=== PATIENT | female | born 2000 | race Caucasian/White ===

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

== ENCOUNTER → 2023-10-24 | Outpatient (CLI) | payer OTHER, SELFPAY ==
--- NOTE | 2023-10-24 15:42 | RAD_ITS ---
STUDY: X-RAY STERNUM REASON FOR EXAM: Female, 23 years old. CHEST PAIN TECHNIQUE: 4 view(s) of the sternum were obtained. COMPARISON: None. FINDINGS: Normal bilateral sternoclavicular articulations. Normal manubrium. Normal sternomanubrial joint. Normal sternal body and xiphoid process. There is no demonstrated fracture of the sternum. Normal visualized anterior ribs. Normal visualized lungs. The soft tissue structures are unremarkable. RAD/Sternum min 2 Views IMPRESSION: Normal x-ray examination of the sternum. Electronically Signed: Remington Elias MD at 8:42 EDT ,
== END | disposition home or self-care (01) ==
LOC: MTRAD 15:37
PROVIDERS: PCP Family Medicine; Referring Provider Family Medicine; Visit Provider Family Medicine
DX: R07.89 Other chest pain (principal)
CPT/HCPCS: 71120

== ENCOUNTER 2024-01-05 08:00 | Outpatient (RCR) | payer OTHER, SELFPAY ==
--- NOTE | 2023-11-03 12:14 | HP.PTEVAL_ITS ---
Patient's Visit Information Visit Information Visit Information: ELI BOWDEN is a 23 year old F referred to Physical Therapy by Dr. Yasmine Joseph MD with a diagnosis of rectus muscle strain. Date of Evaluation: 11/03/23 Physical Therapist: TANYA Okeefe Visit Plan Frequency: 2x /Week Duration: 4 Weeks Plan: 2X/ week for trunk AROM/mobility, core strength in neutral spine (B long arm extension supine and standing, mid rows, arms outstretched with a weight with and without rotation and other neural spine core stability mat and standing/kneeling exercises with HEP Subjective Subjective: She was carrying a box a year and half ago and misjudged the table and it pushed into her stomach. She had pain. If she works out or lifts anyt alfredo heavy. They did an x-ray and that was normal. She has no N&T and no night pain. She has LBP if she works out but in general no pain. No arm or leg weakness. Objective Objective: Gait: walks with normal gait pattern Pt is able to walk on heels and toes Trunk AROM: flex 50%, Ext 20%, SB B 75%, Rot B 75% Tight B HS LE MMT: B hip flex, knee flex, knee ext, hip abd, hip ext 4/5 with no pain LTR is tighter to the R UE MMT B shoulder flex 4/5 and no pain Pt had increase discomfort with holding and 8# med ball out in front of her with arms extended but not real bad pain Pt crunch.....increase her discomfort with very little trunk flexion AROM Balance/Special Test Scores Oswestry Low Back Score: 3 Goals Goal 1:: I HEP Goal Time Frame: 6-8 Weeks Goal 2:: Be able to work out without having abdominal discomfort Goal Time Frame: 6-8 Weeks Goal 3:: Be able to lift 10# without having abdominal pain Goal Time Frame: 6-8 Weeks Goal 4:: Increase trunk AROM (at the time of the eval: Trunk AROM: flex 50%, Ext 20%, SB B 75%, Rot B 75%) Rehabilitation Potential Rehabilitation Potential: Good Anticipated Interventions Patient/Client Instruction: Educate patient on: Condition and Plan of Care For the Purpose of:: To decrease pain, To increase ROM, To improve nutrient delivery to tissue, To improve muscle performance and motor function, To improve ability to perform ADL's, To increase tolerance to activity/condition/position, To improve performance and independence with ADL's, To decrease level of supervision to perform tasks, To improve ability of physical actions for home/community/work/leisure, To improve gait and locomotor functions, To improve health of tissue, To decrease soft tissue restriction and To increase flexibility/ROM Therapeutic Exercise to Include: Strength training, Endurance training, Postural training, Flexibilty training, Gait and locomotor training, Neuromotor development, Passive ROM, Active ROM, Dynamic Lumbar Stabilization and Scapular Strength/Stabilization For the Purpose of:: To decrease pain, To increase ROM, To improve nutrient delivery to tissue, To improve muscle performance and motor function, To improve ability to perform ADL's, To increase tolerance to activity/condition/position, To improve performance and independence with ADL's, To decrease level of supervision to perform tasks, To improve ability of physical actions for home/community/work/leisure, To improve gait and locomotor functions, To improve health of tissue, To decrease soft tissue restriction and To increase flexibility/ROM Manual Therapy Techniques to Include: Mobilization and Passive ROM For the Purpose of:: To increase ROM, To improve nutrient delivery to tissue, To improve muscle performance and motor function and To improve ability to perform ADL's Text: Thank you for the opportunity to evaluate your patient. For Medicare and Medicare HMO plans, please review the plan of care and approve it. It will need to be FAXED BACK to us at [phone] for Medicare purposes. For Medicare only, by signing this I certify the plan of care. Please let me know if there are questions or concerns regarding this plan of care. Physician Signature: Date:
--- NOTE | 2023-12-19 12:29 | HP.PTREVAL_ITS ---
Re-Evaluation Intro: Dr. Yasmine Joseph MD, It has been my pleasure to treat ELI BOWDEN over the last 12 visits for rectus muscle strain. Please see the progress note below for an update on the physical therapy plan of care! Subjective Subjective: She still has some pain when she lifts something really heavy and lifts upward....like a box. She has pain after she lifts it and it is more of a soreness and feels more tight. She is doing her HEP. She reports that it is lifting from waist height to another place waist height. Objective Objective/Function: Discussed POC. Discussed activities that still bring on the pain Trunk AROM: flex 90%, Ext 100%, SB B 100%, Rot B 100%) Pt felt good after todays session Plan Plan Plan: Over next 5 vists work on simulating lifting motion out in front of her and increasing strength. 2X/ week for trunk AROM/mobility, core strength in neutral spine (B long arm extension supine and standing, mid rows, arms outstretched with a weight with and without rotation and other neural spine core stability mat and standing/kneeling exercises with HEP Balance/Gait/Functional tests Balance/Special Test Scores Oswestry Low Back Score: 3 Lower Extremity Functional Score: 78 Goals Goals Goal 1:: I HEP Goal Time Frame: 6-8 Weeks Goal Progress: Goal Met Goal 2:: Be able to work out without having abdominal discomfort Goal Time Frame: 6-8 Weeks Goal Progress: Progressing Goal 3:: Be able to lift 10# without having abdominal pain Goal Time Frame: 6-8 Weeks Goal Progress: Goal Met Goal 4:: Increase trunk AROM (at the time of the eval: Trunk AROM: flex 50%, Ext 20%, SB B 75%, Rot B 75%) Goal Progress: Goal Met Goal 5:: Be able to lift 10+ pounds from out in front of her without any pain Goal Time Frame: 4-6 Weeks Goal 6:: Be able to pull down on the fudge machine without having pain Goal Time Frame: 4-6 Weeks Anticipated Interventions Anticipated Interventions Patient/Client Instruction: Educate patient on: Condition and Plan of Care For the Purpose of:: To decrease pain, To increase ROM, To improve nutrient delivery to tissue, To improve muscle performance and motor function, To improve ability to perform ADL's, To increase tolerance to activity/condition/position, To improve performance and independence with ADL's, To decrease level of supervision to perform tasks, To improve ability of physical actions for home/community/work/leisure, To improve gait and locomotor functions, To improve health of tissue, To decrease soft tissue restriction and To increase flexibil ity/ROM Therapeutic Exercise to Include: Strength training, Endurance training, Postural training, Flexibilty training, Gait and locomotor training, Neuromotor development, Passive ROM, Active ROM, Dynamic Lumbar Stabilization and Scapular Strength/Stabilization For the Purpose of:: To decrease pain, To increase ROM, To improve nutrient delivery to tissue, To improve muscle performance and motor function, To improve ability to perform ADL's, To increase tolerance to activity/condition/position, To improve performance and independence with ADL's, To decrease level of supervision to perform tasks, To improve ability of physical actions for home/community/work/leisure, To improve gait and locomotor functions, To improve health of tissue, To decrease soft tissue restriction and To increase flexibility/ROM Manual Therapy Techniques to Include: Mobilization and Passive ROM For the Purpose of:: To increase ROM, To improve nutrient delivery to tissue, To improve muscle performance and motor function and To improve ability to perform ADL's Re-Evaluation Ending Re-evaluation ending: Please do not hesitate to contact me at [phone] by phone or if you have questions or concerns regarding this new plan of care! Sincerely, TANYA Okeefe
--- NOTE | 2024-02-20 09:45 | HP.PTDCSUM ---
Discharge Summary D/C summary: It has been my pleasure to treat ELI BOWDEN referred by Dr. Yasmine Joseph MD, with the diagnosis of rectus muscle strain for a total of 15 visit(s). Discharge Date: 02/20/24 Please see the following information for a summary of their discharge status. Subjective Subjective: Has no pain, is able to do things she couldn't before Overall Improvement % Improvement: 90 Objective Objective/Function: Patient is doing very well with PT. Continues to be appropriately challenged t/o. Remained asymptomatic t/o. Goals Goal 1:: I HEP Goal Progress: Goal Met Goal 2:: Be able to work out without having abdominal discomfort Goal Progress: Progressing Goal 3:: Be able to lift 10# without having abdominal pain Goal Progress: Goal Met Goal 4:: Increase trunk AROM (at the time of the eval: Trunk AROM: flex 50%, Ext 20%, SB B 75%, Rot B 75%) Goal Progress: Goal Met Goal 5:: Be able to lift 10+ pounds from out in front of her without any pain Goal 6:: Be able to pull down on the fudge machine without having pain Plan Plan: Over next 5 vists work on simulating lifting motion out in front of her and increasing strength. 2X/ week for trunk AROM/mobility, core strength in neutral spine (B long arm extension supine and standing, mid rows, arms outstretched with a weight with and without rotation and other neural spine core stability mat and standing/kneeling exercises with HEP D/C Information Discharge Comments: DC PT d/c sentence: If there are questions or concerns regarding this patient's physical therapy, please feel free to call me at [phone]. Thank you for the referral of this patient. Sincerely, Nyasia Redd, MPT Balance/Gait/Functional tests Balance/Special Test Scores Oswestry Low Back Score: 3 Lower Extremity Functional Score: 78 Improvement % Improvement: 90
== END 2024-01-05 19:00 | disposition home or self-care (01) ==
LOC: PT 08:00
PROVIDERS: PCP Family Medicine; Referring Provider Family Medicine; Visit Provider Family Medicine
DX: S39.011D Strain of muscle, fascia and tendon of abdomen, subsequent encounter (principal)
CPT/HCPCS: 97110; 97161; 97530